=== PATIENT | female | born 2000 | race Caucasian/White ===

== ENCOUNTER 2020-08-19 20:14 | Emergency (ER) | payer OTHER ==
[~2020-08-19] VITALS: Ht 165.1 cm; Wt 77.3 kg
[2020-08-19 22:01] VITALS: BP 122/64; PULSE 72; TEMP 98.1
== END 2020-08-19 22:03 | disposition home or self-care (01) ==
LOC: COL.ER 20:14
DX: S81.011A Laceration without foreign body, right knee, initial encounter (principal); W01.0XXA Fall on same level from slipping, tripping and stumbling without subsequent striking against object, initial encounter; Y92.480 Sidewalk as the place of occurrence of the external cause

== ENCOUNTER → 2020-09-01 | Outpatient (CLI) | payer OTHER ==
[2020-09-01 09:51] VITALS: BP 116/67; PULSE 79; TEMP 98.4
== END ==
LOC: COL.ER 09:37
DX: Z48.02 Encounter for removal of sutures (principal)